=== PATIENT | male | born 2000 | race Two or more races ===

== ENCOUNTER 2020-11-28 13:00 | Emergency (ER) | payer MEDICAID, OTHER ==
[~2020-11-28] VITALS: Ht 182.9 cm; Wt 86.2 kg
[2020-11-28] MEDS ORDERED: ONDANSETRON ODT 4 MG TAB PO ONE ×2 (13:03→13:15)
[2020-11-28 13:08] VITALS: BP 112/82
== END 2020-11-28 13:31 | disposition home or self-care (01) ==
LOC: ER 13:00
DX: T52.91XA Toxic effect of unspecified organic solvent, accidental (unintentional), initial encounter (principal); R11.0 Nausea; Y92.89 Other specified places as the place of occurrence of the external cause
CPT/HCPCS: 99283; Q0162